=== PATIENT | female | born 1975 ===

== ENCOUNTER 2025-06-11 12:31 | Outpatient (AMB) | payer OTHER, SELFPAY ==
[2025-06-11 12:38] VITALS: BMI 28.2
--- NOTE | 2025-06-11 12:38 | MHC.AMNUTRGE ---
VS Expanded 06/11/25 12:38 06/18/25 18:39 Height 5 ft 7 in 5 ft 7 in Weight 180 lb 1.883 oz 180 lb BMI 28.2 28.2 Intake Visit Reasons: T2DM Allergies No Known Allergies Allergy (Unverified 06/05/20 17:00) Nutrition Presentation Details: Pt presents for MNT for T2DM Pt reports she is currently on metformin 500, 2 tabs twice/d Pt has questions regarding diet management, meal replacement Reports often skipping meals leading to larger food portions in the evening. food frequency fruits: 0-1/d dairy: 2/d ve-2/d fish: 0-1/wk fluids: water, low sugar beverages PNK-Loyzwyr-Yk.Jeor Equation Height: 5 ft 7 in Weight: 180 lb Resting Metabolic Rate: 1467.35 Calculated Activity Level: Sedentary Calories Needed to Maintain Weight: 1760.82 Diagnosis Nutrition problem #1: food nutri know defi As related to (etiology) #1: diagnosis As evidenced by (sign/symptom) #1: knowledge deficit of diet Assessment & Plan Assessment & Plan (1) T2DM (type 2 diabetes mellitus): Code(s): E11.9 - Type 2 diabetes mellitus without complications Category: Medical Plan: current wt: 82 kg ( 06/13 ) est kcal needs as per MSJ: 1800 est protein needs as per 1 g/kg BW: 80 est fluid needs as per 30 ml/kg BW: 2400 est Na intake : < 2300 Recommended fiber > 12 g /day and gradually increase up to 25-28 g /day or as tolerated Nutrition topics discussed : Reviewed (R), Pt verbalized understanding (V) , not applicable (N/A) R, : Healthy Plate Method Concept: R, : Carbohydrates: food sources of carbohydrates, relationship of carbohydrates to blood glucose, fatty liver GI health. Recommended total amount of carbohydrates per meals and snack. Differences between simple carbohydrates and complex carbohydrates R, : Lean protein foods including vegan , vegetarian sources of protein. Benefits of protein (including but not limited to healing, nutritional value , benefits in weight loss, glucose control R, : Fats : Source of fats, benefits of fats. Difference between saturated and unsaturated fats. Saturated fats and its contribution to inflammation R, V, N/A: Fiber: food sources and role of fiber in the diet (including but not limited to its role as a prebiotic, benefits in constipation, role in IBS , role in glucose control and cholesterol level) R, : Hydration: role of hydration and prevention of dehydration or over hydration. Foods and water content. R, V, N/A: Vitamins and Minerals in foods and supplements R, V, N/A: Interpreting food labels, including serving size, macronutrients, vitamins, minerals, allergens, ingredient list , % daily value Patient Instructions: Try a meal replacement once a day Follow healthy plate method, once/day Coding Level of Care Code Nutr Indiv Intake (50116) Diagnoses T2DM (type 2 diabetes mellitus) E11.9 Time Spent (min) 30
--- OUTSIDE RECORDS SUMMARY | 2025-06-11 15:22 | XMS_ITS | Clinical Summary ---
Author Organization [address] [place] [address] Address [address] [place] [address] Phone Care Team Providers Care Roof Foreman Name Role Phone Kathy Park Primary Care Provider + Allergies Active Allergy Reactions Criticality Noted Date Comments Amoxicillin Diarrhea 07/10/2014 Gabapentin Hallucinations 06/25/2014 Ibuprofen 10/14/2017 Nsaids (Non-Steroidal Anti-Inflammatory Drug) Other 02/19/2022 Caused a bleed Penicillin G 02/19/2022 Medications ketoconazole (NIZORAL) 2 % cream Apply daily on itchy lesions 09/30/19 23 Active acetaminophen (TYLENOL) 500 mg tablet Take 1 Tablet by mouth every 6 hours as needed for Pain for up to 10 days. 02/06/20 22 Active albuterol sulfate (ProAir RespiClick) 90 mcg/actuation aerosol powdr breath activated Inhale 2 Puffs into the lungs 4 times daily as needed for Other. 09/30/19 23 Active cholecalciferol (VITAMIN D-3) 50 mcg (2,000 unit) capsule Take 1 capsule (2,000 Units total) by mouth 1 (one) time each day. 12/21/19 24 Active ipratropium (ATROVENT) 42 mcg (0.06 %) nasal spray 2 Sprays by Nasal route 4 times daily. 09/30/19 23 Active loratadine (CLARITIN) 10 mg tablet Take 1 Tablet by mouth daily for 360 days. 12/21/19 24 Active olopatadine (PATANOL) 0.1 % ophthalmic solution PLACE 1 DROP INTO BOTH EYES 2 TIMES DAILY. NEEDED FOR ITCHING. 01/19/20 24 Active losartan (Cozaar) 50 mg tablet Take 1 tablet (50 mg total) by mouth 1 (one) time each day. 30 each 09/24/19 25 026 Active glipiZIDE (GLUCOTROL XL) 5 mg 24 hr tabletIndicatio ns:Type 2 diabetes mellitus without complication, without long-term current use of insulin (CMS/[facility] V24, CMS/HCC V28) Take 1 tablet (5 mg total) by mouth 1 (one) time each day with breakfast. Do not crush, chew, or split. 90 each 04/10/20 25 Active omeprazole (PriLOSEC) [address] capsuleIndicati ons:Post-trauma tic stress disorder, unspecified TAKE 1 CAPSULE BY MOUTH DAILY FOR 360 DAYS. 90 capsule 1 04/24/20 25 Active freestyle (FreeStyle Lancets) 28 gauge lancetsIndicati ons:Type 2 diabetes mellitus without complication, unspecified whether bed bug exterminator insulin use Use with Freestyle lite sensor to check sugar up to 2 times daily. 100 each 05/02/20 25 Active blood sugar diagnostic (FreeStyle Lite Strips) test stripIndication s:Type 2 diabetes mellitus without complication, unspecified whether bed bug exterminator insulin use 1 each by Other route 2 (two) times daily after breakfast and dinner. Use with Freestyle Lite meter, to check sugar up to 2 times daily. 100 each 05/02/20 25 Active metFORMIN (GLUCOPHAGE) 500 mg tabletIndicatio ns:Type 2 diabetes mellitus without complication, unspecified whether bed bug exterminator insulin use Take 2 tablets (1,000 mg total) by mouth 2 (two) times a day with meals. 360 tablet 3 05/02/20 25 Active blood-glucose meter kitIndications: Type 2 diabetes mellitus without complication, unspecified whether halfway insulin use Apply topically 2 (two) times daily after breakfast and dinner. Freestyle Lite kit, use to check sugar up to 2 times daily. 1 each 05/02/20 25 Active tiZANidine (Zanaflex) 4 mg tabletIndicatio ns:Cervico-occi pital neuralgia of left side Take 1 tablet (4 mg total) by mouth at bedtime as needed for muscle spasms. 30 tablet 05/17/20 25 Active metroNIDAZOLE (METROGEL) 0.75 % (37.5mg/5 gram) vaginal gel Insert 1 Applicatorful into the vagina at bedtime for 7 days. 1 EA 05/13/20 25 025 Active Problems Problem Noted Date Diagnosed Date Atypical chest pain 04/19/2022 Forehead laceration 04/19/2022 Head injury 04/19/2022 Diabetes mellitus due to und erlying condition, uncontrolled, with hyperglycemia ([facility] V24, [facility] V28) 01/11/2022 Cervical cancer, FIGO stage IA2 ([facility] V24, [facility]/FORM[facility] V28) 11/25/2021 IBS (irritable bowel syndrome) 05/27/2015 Valerio's esophagus 10/10/2014 Overview (08/06/2024): Small area of Valerio's at EGD 10/08/2014. Endoscopy indicated 2017. Pancreas cyst 10/08/2014 Overview (08/06/2024): Resolved on MRI scan 12/25/2015. Fibromyalgia 07/10/2014 Overview (08/06/2024): Onset approx age 31. Migraine 07/10/2014 Overview (08/06/2024): Onset approx age 34. Breast lump 08/15/2013 Overview (08/06/2024): Noted on medial left breast. on mammogram, 07/2013. Probably benign. Pt opted for short term follow up in 4 months, declined core biopsy, but is aware this option is availble at any time ADHD (attention deficit hyperactivity disorder) 06/27/2013 Panic anxiety syndrome 06/27/2013 PTSD (post-traumatic stress disorder) 06/27/2013 HTN (hypertension) DM type 2 (diabetes mellitus , type 2) ([facility] V24, [facility] V28) Encounters Date Type Department Care Team Description 06/03/2025 Telephone Internal Medicine [address] [phone] Ivan Slater MD 05/17/2025 3:45 PM EDT Office Visit Internal Medicine - [place] [address] [phone] Kathy Park PA Cervico-occipital neuralgia of left side (Primary Dx); Primary hypertension 05/17/2025 Telephone Internal Medicine [facility] [address] [phone] Kathy Park PA 05/14/2025 3:27 PM EDT - 05/14/2025 11:59 PM EDT [facility] [address] [phone] Cervical cancer, FIGO stage IA2 ([facility] V24, [facility] V28) Discharge Disposition: Home or Self Care 05/14/[address] [address] Tamica Mcginnis, RN 05/13/2025 [facility] [address] [phone] Tamica Mcginnis, RN 05/09/2025 2:40 PM EDT Office Visit [address] [phone] Philly Leonard MD Cervical cancer, FIGO stage IA2 ([facility] V24, [facility] V28) (Primary Dx); Vaginal discharge 04/11/2025 Telephone Internal Medicine [facility] [address] [phone] Kathy Park PA 04/09/2025 10:45 AM EDT Office Visit [address] [phone] Kathy Park PA Type 2 diabetes mellitus without complication, without long-term current use of insulin (CMS/[facility] V24, [facility] V28) (Primary Dx); Primary hypertension; Gastroesophageal reflux disease, unspecified whether esophagitis present; Anxiety 04/04/2025 Telephone Internal Medicine [facility] [address] [phone] Ivan Slater MD 03/27/2025 Telephone Internal Medicine - [place] 175 [facility] [address] [place] [address] Ivan Slater MD from Last 3 Months Immunizations Name Administration Dates Next Due Tdap Tetanus diptheria acell ular pertussis (Boostrix; Adacel) 7yo and older 05/02/2024 Surgical History Surgery Date Site/Laterality Comments APPENDECTOMY 1996 PROCEDURE: HISTORICAL APPENDECTOMY; COMMENT: s/p rupture SECTION PROCEDURE: HISTORICAL DELIVERY; COMMENT: x 2 ESOPHAGOGASTRODUODENOSCOPY 10/08/2014 PROCEDURE: TX EGD TRANSORAL BIOPSY SINGLE/MULTIPLE; COMMENT: esoph bx: tiny area of Valerio's, no dysplasia. OTHER SURGICAL HISTORY 12/03/2021 PROCEDURE: TX CONIZATION CERVIX W/WO D&C RPR KNIFE/LASER HYSTERECTOMY Medical History Medical History Date Comments Pneumonia DX:Pneumonia Ovarian cyst DX:Ovarian cyst Hepatitis C antibody test positive 06/10/2010 DX:Hepatitis C antibody test positive; COMMENT: NEGATIVE VIRAL RNA-see scanned record Hx of gestational diabetes m ellitus, not currently 02/05/2014 DX:Hx of gestational diabete s mellitus, not currently Migraine 07/10/2014 DX:Migraine; COM MENT: Onset approx age 34. Fibromyalgia 07/10/2014 DX:Fibromyalgia; COMMENT: Onset approx age 31. Pancreas cyst 10/08/2014 DX:Pancreas cyst Valerio's esophagus 10/10/2014 DX:Valerio's esophagus; COMMENT: Small area of Valerio's at EGD 10/08/2014. Endoscopy indicated 2017. HTN (hypertension) DM type 2 (diabetes mellitus , type 2) ([facility] V24, [facility] V28) Family History Medical History Relation Name Comments No Known Problems Daughter 1 No Known Problems Daughter 2 Diabetes Father's side 1 Hypertension Father's side 2 Depression Father's side 3 Parkinson's Disease Maternal Grandfather No Known Problems Maternal Grandmother No Known Problems Mother Breast cancer Mother's side 1 aunts Hypertension Mother's side 2 Diabetes Mother's side 3 Depression Mother's side 4 No Known Problems Paternal Grandfather No Known Problems Paternal Grandmother No Known Problems Son 1 No Known Problems Son 2 No Known Problems Son 3 Relation Name Status Comments Brother 1 Alive Brother 2 Alive Brother 3 Alive 1/2 Daughter 1 Alive Daughter 2 Alive Father (Age 38) AIDS Father's side 1 Father's side 2 Father's side 3 Maternal Grandfather Alive Maternal Grandmother Alive Mother Alive Mother's side 1 Mother's side 2 Mother's side 3 Mother's side 4 Paternal Grandfather Alive Paternal Grandmother Sister 1 Alive Sister 2 Alive Sister 3 Alive Sister 4 Alive Sister 5 Alive 1/2 Sister 6 Alive 1/2 Son 1 Alive Son 2 Alive Son 3 Alive Social History Tobacco Use Types Packs/Day Years Used Date Smoking Tobacco: Every Day Cigarettes Smokeless Tobacco: Current Tobacco Cessation:Ready to Q uit: No; Counseling Given: Yes Alcohol Use Standard Drinks/Week Comments Yes 0 (1 standard drink = 0.6 oz pur e alcohol) Comments No Sex and Gender Information Value Date Recorded Sex Assigned at Not on file Legal Sex Female 5:08 AM EST Gender Identity Not on file Sexual Orientation Not on file Obstetrics History Para Term AB IAB SAB Ectopic Multiple Livin g Live Births 5 Last Filed Vital Signs Vital Sign Reading Time Taken Comments Blood Pressure 152/96 05/17/2025 3:37 PM EDT Pulse 94 05/17/2025 3:35 PM EDT Temperature 36.9 C (98.4 F) 05/17/2025 3:35 PM EDT Respiratory Rate - - Oxygen Saturation 98% 05/17/2025 3:35 PM EDT Inhaled Oxygen Concentration - - Weight 82.2 kg (181 lb 3.2 oz) 05/17/2025 3:35 P M EDT Height 170.2 cm (5' 7 ) 05/17/2025 3:35 PM EDT Body Mass Index 28.38 05/17/2025 3:35 PM EDT Plan of Treatment Upcoming Encounters Date Type Department Care Team (Late st Contact Info) Description 06/17/2025 3:15 PM EDT Office Visit Internal Medicine - [place] 175 [facility] [address] [place] [address] Kathy Park PA 175 [facility] [address] [place] [address] 06/18/2025 12:30 PM EDT Evaluation [facility] [place] 175 [facility] [address] [place] [phone] Kapil Flaherty, PT 07/16/2025 11:00 AM EDT Office Visit Internal Medicine - [place] 175 [facility] [address] [place] [address] Kathy Park PA 175 [facility] [address] [place] [address] 05/13/2026 9:00 AM EDT Office Visit [facility] [place] [address] [place] [phone] Philly Leonard MD [address] [place] [address] Health Maintenance Due Date Last Done Comments Diabetes: Annual Foot Exam 1983 Hepatitis B Vaccines (1 of 3 - 19+ 3-dose series) 1992 Pneumococcal Vaccine: 50+ Years (1 of 2 - PCV) 1992 Zoster Vaccines (1 of 2) 1992 COVID-19 Vaccine (3 - Pfizer risk series) 03/19/2021 02/19/2021, 01/20/2021 Colorectal Cancer Screening: Colonoscopy 08/28/2022 Social Influencers of Health Screening 08/28/2022 Depression Screening 09/19/2024 Diabetes: Annual Retina Eye Exam 10/18/2024 10/18/2023 Diabetes: Annual Urine Albumin-Creatinine Ratio (uACR) 12/20/2024 12/21/2023 Influenza Vaccine (#1) 2025 Diabetes: Blood Sugar Contro l Test (HGBA1C) 10/10/2025 04/09/2025, 05/02/2024, 05/02/2024 Diabetes: Annual GFR (Glomerular Filtration Rate) 04/09/2026 04/09/2025, 12/21/2023 Hypertension/CHF/CAD Annual BMP Blood Test 04/09/2026 04/09/2025, 12/21/2023 Cervical Cancer Screening: P ap Smear 05/09/2026 05/09/2025, 06/27/2013, 06/27/2013 Breast Cancer Screening 05/14/2027 05/14/20, 09/21/2017 Cholesterol Screening (Lipid Panel) 12/20/2028 12/21/2023 DTaP,Tdap,and Td Vaccines (2 - Td or Tdap) 05/02/2034 05/02/2024 RSV Immunization Adult Patients (1 - 1-dose 75+ series) 2048 HIV Screening Completed 06/27/2013 Hepatitis C Screening Completed 06/27/2013 HIB Vaccines Aged Out No longer eligi ble based on patient's age to complete this topic HPV Vaccines Aged Out No longer eligi ble based on patient's age to complete this topic Hepatitis A Vaccines Aged Out No long er eligible based on patient's age to complete this topic IPV Vaccines Aged Out No longer eligi ble based on patient's age to complete this topic MMR Vaccines Aged Out No longer eligi ble based on patient's age to complete this topic Meningococcal ACWY Vaccine Aged Out N o longer eligible based on patient's age to complete this topic Meningococcal B Vaccine Aged Out No l onger eligible based on patient's age to complete this topic RSV Immunization Patients Under 20 months Aged Out No longer eligible b ased on patient's age to complete this topic Varicella Vaccines Aged Out No longer eligible based on patient's age to complete this topic Procedures Procedure Name Priority Date/Time Associated Diagnosis Comments MG MAMMO DIGITAL SCREENING W ELLIOT BILAT Routine 05/14/2025 3:42 PM EDT Cervical cancer, FIGO stage IA2 ([facility] V24, [facility] V28) VAGINITIS PATHOGENS BY PCR Routine 05/09/2025 4:37 PM EDT Vaginal discharge PAP SMEAR Routine 05/09/2025 3:33 PM EDT Vaginal discharge HEMOGLOBIN A1C Routine 04/09/2025 11:07 AM EDT Type 2 diabetes mellitus without complication, without long-term current use of insulin ([facility] V24, [facility] V28) COMPREHENSIVE METABOLIC PANEL Routine 04/09/2025 11:07 AM EDT Type 2 diabetes mellitus without complication, without long-term current use of insulin ([facility] V24, [facility] V28) URINE ALBUMIN CREATININE RATIO Routine 12/21/2023 LIPID PANEL Routine 12/21/2023 DIABETES EYE EXAM Routine 10/18/2023 HEPATITIS C SCREENING Routine 06/27/2013 HIV SCREENING Routine 06/27/2013 from Last 3 Months or Most Recently Relevant to Health Maintenance Results * MG Mammo Digital Screening w Elliot bilat (05/14/2025 3:42 PM EDT) Anatomical Region Laterality Modality Breast Bilateral Mammography 05/15/2025 3:36 PM EDT Impressions 05/15/2025 3:57 PM EDT No mammographic evidence of malignancy. No suspicious interval change. A negative mammogram in the presence of a clinically suspicious palpable abnormality does not preclude the possibility of malignancy or alter the indications for biopsy. ASSESSMENT: BI-RADS 1: NEGATIVE RECOMMENDATION(S): 1: Routine screening mammogram BILATERAL in 1 year. [facility] [address], [address] -------- FINAL REPORT -------- Dictated By: Dayo Calvo Dictated Date: 05/15/2025 15:36 ET Assigned Physician: Dayo Calvo Reviewed and Electronically Signed By: Dayo Calvo Signed Date: 05/15/2025 15:57 ET Workstation ID: [id number] Transcribed By: Self Edit Transcribed Date: 05/15/2025 15:36 ET Narrative 05/15/2025 3:57 PM EDT EXAM: SCREENING MAMMOGRAPHY, BILATERAL HISTORY: SCREENING. Maternal aunt with history of breast cancer. COMPARISON: 09/21/17 TECHNIQUE: Synthesized CC and MLO projections of each breast. Tomosynthesis of each breast in the CC and MLO projections. ADDITIONAL IMAGING: None Computer-aided detection was employed with the [employer] ProFound AI 3-D. TISSUE DENSITY: The breasts are almost entirely fatty. (BI-RADS Category A) FINDINGS: RIGHT BREAST: No suspicious mass. No suspicious calcification. No distortion. No additional suspicious right breast findings LEFT BREAST: No suspicious mass. No suspicious calcification. No distortion. No additional suspicious left breast findings Procedure Note Dayo Calvo MD - 05/15/2025 EXAM: SCREENING MAMMOGRAPHY, BILATERAL HISTORY: SCREENING. Maternal aunt with history of breast cancer. COMPARISON: 09/21/17 TECHNIQUE: Synthesized CC and MLO projections of each breast.Tomosynthesis of each breast in the CC and MLO projections. ADDITIONAL IMAGING: None Computer-aided detection was employed with the iCAD ProFound AI 3-D. TISSUE DENSITY: The breasts are almost entirely fatty. (BI-RADS CategoryA) FINDINGS: RIGHT BREAST: No suspicious mass. No suspicious calcification. No distortion. Noadditional suspicious right breast findings LEFT BREAST: No suspicious mass. No suspicious calcification. No distortion. Noadditional suspicious left breast findings IMPRESSION: No mammographic evidence of malignancy. No suspicious interval change. A negative mammogram in the presence of a clinically suspicious palpableabnormality does not preclude the possibility of malignancy or alter theindications for biopsy. ASSESSMENT: BI-RADS 1: NEGATIVE RECOMMENDATION(S): 1: Routine screening mammogram BILATERAL in 1 year. [facility] location[facility] at [address], [address] -------- FINAL REPORT -------- Dictated By: Dayo Calvo Dictated Date: 05/15/2025 15:36 ET Assigned Physician: Dayo Calvo Reviewed and Electronically Signed By: Dayo Calvo Signed Date: 05/15/2025 15:57 ET Workstation ID: [id number] Transcribed By: Self Edit Transcribed Date: 05/15/2025 15:36 ET Philly Leonard MD IMG BI PROCEDURES Final Result * (ABNORMAL) Vaginitis pathogens molecular study (05/09/2025 4:37 PM EDT) Trichomonas vaginalis Negative Negative 05/10/2025 1:19 PM EDT [facility] Gardnerella vaginalis Positive(A) Negative 05/10/2025 1:19 PM EDT [facility] Amanda Species Negative Negative 1:19 PM EDT [facility] Swab Vaginal structure / Unknown Non-blood Collection / Unknown 05/09/2025 4:37 PM EDT 05/09/2025 4:59 PM EDT us Philly Leonard MD LAB MICROBIOLOGY - GENERAL ORDER JAVIER Final Result [facility] [address] [place] [address], * Pap smear (05/09/2025 3:33 PM EDT) Interpretation Negative for intraepithelial lesion or malignancy 05/22/2025 12:07 PM EDT [facility] Clinical Information Squamous cell carcinoma of the cervix 05/22/2025 12:07 PM EDT [facility] General Categorization Negative 05/22/2025 12:07 PM EDT [facility] Specimen Adequacy Satisfactory for evaluation 05/22/2025 12:07 PM EDT [facility] Pap Methodology Liquid Based Pap Test 05/22/2025 12:07 PM EDT [facility] Disclaimer Note: This pap test could not be imaged utilizing the [employer] Imaging System and required a manual review. The Pap test is a screening test which carries an inherent false negative rate. These test results should be correlated with the patient's clinical findings and history. This Pap test was processed using an automated screening system. Technical cytopathology services provided by [facility], at [address] [place] [id number] (CLIA # [id number]/María Portillo MD, Professor Of Business Administration.) 05/22/2025 12:07 PM EDT [facility] Console Pap Interpretation Reported 05/22/2025 12:07 PM EDT [facility] Brushing/Spatula Vaginal structure / Unknown 05/09/2025 3:33 PM EDT 05/10/2025 6:37 AM EDT Philly Leonard MD LAB CYTOLOGY ORDERABLES Final Re sult Performing Organization Address [facility]/ZIP Co de Phone Number [facility] [address] [place] [address], [place] [phone] * (ABNORMAL) Hemoglobin A1c (04/09/2025 11:07 AM EDT) Hemoglobin A1C 8.0(H) <6.5 % LAB CHEMISTRY METHOD 04/09/2025 5:58 PM EDT [facility] Mean Bld Glu Estim. 183 mg/dL LAB CHEMISTRY METHOD 04/09/2025 5:58 PM EDT [facility] Blood Venous blood specimen / Unknown Venipuncture / Unknown 04/09/2025 11:07 AM EDT 04/09/2025 11:07 AM EDT Kathy RIOS LAB BLOOD ORDERABLES Fin al Result [facility] [address] [place] [address], [place] [phone] * (ABNORMAL) Comprehensive metabolic panel (04/09/2025 11:07 AM EDT) Sodium 138 133 - 145 mmol/L LAB CHEMISTRY METHOD 04/09/2025 7:03 PM EDT [facility] Potassium 4.8 3.5 - 5.5 mmol/L LAB CHEMISTRY METHOD 04/09/2025 7:03 PM [facility] Chloride 103 96 - 110 mmol/L LAB CHEMISTRY METHOD 04/09/2025 7:03 PM [facility] CO2 30 21 - 32 mmol/L LAB CHEMISTRY METHOD 04/09/2025 7:03 PM [facility] Anion Gap 5 3 - 11 LAB CHEMISTRY METHOD 04/09/2025 7:03 PM [facility] Glucose 270(H) 70 - 100 mg/dL LAB CHEMISTRY METHOD 04/09/2025 7:03 PM [facility] BUN 8 5 - 25 mg/dL LAB CHEMISTRY METHOD 04/09/2025 7:03 PM [facility] Creatinine 0.83 0.50 - 1.10 mg/dL LAB CHEMISTRY METHOD 04/09/2025 7:03 PM [facility] eGFR 85 >=60 mL/min/1. 73m2 LAB CHEMISTRY METHOD 04/09/2025 7:03 PM [facility] Comment:Calculation based on the Chronic Kidney Disease Epidemiology Collaboration (CKD-EPI) equation refit without adjustment for race. BUN/Creatinine Ratio 9.6 LAB CHEMISTRY METHOD 04/09/2025 7:03 PM [facility] Calcium 9.3 8.5 - 10.5 mg/dL LAB CHEMISTRY METHOD 04/09/2025 7:03 PM [facility] AST (SGOT) 10 10 - 42 unit/L LAB CHEMISTRY METHOD 04/09/2025 7:03 PM [facility] ALT (SGPT) 21 10 - 60 unit/L LAB CHEMISTRY METHOD 04/09/2025 7:03 PM [facility] Alkaline Phosphatase 118 42 - 121 unit/L LAB CHEMISTRY METHOD 04/09/2025 7:03 PM [facility] Total Protein 7.1 6.0 - 8.0 g/dL LAB CHEMISTRY METHOD 04/09/2025 7:03 PM EDT [facility] Albumin 4.1 3.2 - 5.0 g/dL LAB CHEMISTRY METHOD 04/09/2025 7:03 PM EDT [facility] Total Bilirubin 0.5 0.0 - 1.4 mg/dL LAB CHEMISTRY METHOD 04/09/2025 7:03 PM EDT [facility] Blood Venous blood specimen / Unknown Venipuncture / Unknown 04/09/2025 11:07 AM EDT 04/09/2025 11:07 AM EDT Kathy RIOS LAB BLOOD ORDERABLES Fin al Result [facility] [address] [place] [address], * Urine Albumin Creatinine Ratio (12/21/2023) [facility] Urine Albumin Creatinine Ratio abstracted Result [facility] Provider HEALTH MAINTENANCE Final Result * Lipid panel (12/21/2023) [facility] LDL/HDL Ratio 2 Triglycerides 52 0 - 150 mg/dL Cholesterol 163 0 - 200 mg/dL HDL 68 >=40 mg/dL LDL Cholesterol 85 0 - 100 mg/dL Blood Venous blood specimen / Unknown Result [facility] Historical Provider LAB BLOOD ORDERABLES Kalani l Result * Diabetes Eye Exam (10/18/2023) [facility] Diabetes: Annual Retina Eye Exam abstracted Historical Provider HEALTH MAINTENANCE Final Result * HIV Screening (06/27/2013) [facility] HIV Screening abstracted Historical Provider HEALTH MAINTENANCE Final Result * Hepatitis C Screening (06/27/2013) [facility] Hepatitis C Screening abstracted [facility] Provider HEALTH MAINTENANCE Final Result from Last 3 Months or Most Recently Relevant to Health Maintenance Insurance [employer] Care Teams Roof Foreman Relationship Specialty Start Date End Date Kathy Park PA [address] [address] PCP - General Primary Care 04/04/25
--- OUTSIDE RECORDS SUMMARY | 2025-06-11 15:22 | XMS_ITS | Clinical Summary ---
Author Organization [facility] Facility Address [address] [address] Care Team Providers Care Bank Guard Name Role Phone Unavailable Primary Care Provider Unavailabl e Allergies Active Allergy Reactions Criticality Noted Date Comments Amoxicillin 08/03/2022 Gabapentin 08/03/2022 Ibuprofen 08/03/2022 Nsaids 08/03/2022 Penicillin G 08/03/2022 Active Problems Problem Noted Date Diagnosed Date Diabetes mellitus 08/03/2022 Resolved Problems Problem Noted Date Diagnosed Date Resolved Date Arthritis 08/03/2022 08/03/2022 Asthma 08/03/2022 08/03/2022 Cervical cancer 08/03/2022 08/03/2022 Gastroesophageal reflux disease 08/03/2022 08/03/2022 Vaginal irritation 08/03/2022 Social History Tobacco Use Types Packs/Day Years Used Date Smoking Tobacco: Never Assessed Comments Unknown Sex and Gender Information Value Date Recorded Sex Assigned at Not on file Legal Sex Female 2:58 PM EDT Gender Identity Not on file Sexual Orientation Not on file Plan of Treatment Health Maintenance Due Date Last Done Comments Breast Cancer Screening 1975 Hepatitis B Vaccine (1 of 3 - 19+ 3-dose series) 10/29 Pneumococcal Vaccine: 50+ Years (1 of 2 - PCV) 993 Diabetes: Hemoglobin A1C 07/16/2022 Diabetes: Ophthalmology Exam 07/16/2022 Diabetes: Pedal Pulse Checked 07/16/2022 Diabetes: Sensory Foot Exam 07/16/2022 Diabetes: Visual Foot Exam 07/16/2022 Colorectal Cancer Screening: Annual FOBT 2022 Colorectal Cancer Screening: Colonoscopy 2022 Colorectal Cancer Screening: Sigmoidoscopy 2022 Influenza Vaccine (#1) 2025 Insurance Medicaid
--- OUTSIDE RECORDS SUMMARY | 2025-06-11 15:22 | XMS_ITS ---
Author Name [facility] Organization Unknown Care Team Organization Name Specialty Phone Email Start Date End Da te [facility] Kacy Suárez Primary Care 05/26/2023 05/07/2024 [facility] Edgar De Leon Primary Care 02/25/2023 05/07/2024 [facility] Aston Moreland DO Primary Care 07/27/202204/19
[2025-06-18 18:39] VITALS: BMI 28.2
== END 2025-06-11 13:08 | disposition home or self-care (01) ==
LOC: HO.ENCR 12:32
PROVIDERS: PCP Physician Assistant; Visit Provider Dietitian, Registered
DX: E11.9 Type 2 diabetes mellitus without complications (principal)

== ENCOUNTER → 2025-06-11 12:31 | Outpatient (BNVA) | payer OTHER, SELFPAY | PROVIDERS: PCP Physician Assistant; Visit Provider Dietitian, Registered | DX: E11.9 Type 2 diabetes mellitus without complications (principal) | CPT/HCPCS: 97802 ==